=== PATIENT | female | born 1990 | race Caucasian/White ===

== ENCOUNTER 2022-04-13 17:40 | Emergency (ER) | payer MEDICAID ==
[~2022-04-13] VITALS: Ht 167.6 cm; Wt 93.4 kg
[2022-04-13 17:47] VITALS: BP_SYST 129
[2022-04-13] MEDS ORDERED: PSEU30TA36 PO (21:48)
[2022-04-13] MEDS ORDERED: IBUP-1969 PO (21:48)
[2022-04-13 21:59] VITALS: BP_SYST 108
--- NOTE | 2022-04-13 21:59 | NUR ---
Patient is alert and oriented x4, respirations even and unlabored, speaking in full sentences and ambulating with a steady gait. Denied any acute distress at this time. Okay for discharge per Dr. Tse. RN went over and provided a printed copy of the discharge instructions and prescriptions. ED and 911 precautions given. Patient verbalized understanding.
== END 2022-04-13 21:59 | disposition home or self-care (01) ==
LOC: SED 17:40
DX: J20.9 Acute bronchitis, unspecified (principal); R05.9 Cough, unspecified; J02.9 Acute pharyngitis, unspecified; Z79.899 Other long term (current) drug therapy; Z20.822 Contact with and (suspected) exposure to COVID-19
CPT/HCPCS: 36415; 71045; 99284